=== PATIENT | male | born 1935 | race Caucasian/White ===

== ENCOUNTER 2020-04-21 09:51 | Emergency (ER) | payer MEDICARE, SELFPAY ==
[~2020-04-21] VITALS: Ht 182.9 cm; Wt 136.1 kg
[2020-04-21 09:54] VITALS: BP_SYST 128
--- NOTE | 2020-04-21 09:54 | NUR ---
Patient to ER bed 7 to gown for evaluation. Side rails up. Report given to VINAY EVANS.
--- NOTE | 2020-04-21 10:00 | NUR ---
DR GORDON IN TO ASSESS
--- NOTE | 2020-04-21 10:12 | NUR ---
LABS OBTAINED. PT CALM, ALERT, NO DISTRESS, RESP UNLABORED, SKIN WARM AND DRY
[2020-04-21 10:25] LABS: BASOPHILS # (AUTO) 0.1 K/uL (0.0-0.2); BASOPHILS % (AUTO) 0.6 % (0.0-2.0); EOSINOPHILS # (AUTO) 0.1 K/uL (0.0-0.4); EOSINOPHILS % (AUTO) 0.6 % (0.0-4.0); HEMOGLOBIN 14.2 g/dL (14.0-18.0); LYMPHOCYTES % (AUTO) 6.9 % (20.5-51.5); MEAN CORPUSCULAR HEMOGLOBIN 29 pg (27-31); MEAN CORPUSCULAR HGB CONC 34 % (32-36); MEAN CORPUSCULAR VOLUME 86 fL (79.0-98.0); MONOCYTES # (AUTO) 1.3 K/uL (0.0-1.0); MONOCYTES % (AUTO) 8.9 % (1.7-9.3); NEUTROPHILS # (AUTO) 12.2 K/uL (1.8-7.7); PLATELET COUNT (AUTO) 288 K/uL (130-430); RED BLOOD CELL COUNT(AUTO) 4.91 MIL/uL (4.2-6.2); RED CELL DISTRIBUTION WIDTH 15.2 % (9.0-15.0); WHITE BLOOD COUNT (AUTO) 14.7 K/uL (4.8-10.8)
[2020-04-21 10:40] LABS: ANION GAP 11 (5-15); CALCIUM 8.7 mg/dL (8.4-11.0); CHLORIDE 102 mmol/L (98-107); GLUCOSE 114 mg/dL (70-99); POTASSIUM 4.2 mmol/L (3.5-5.1); SODIUM SERUM 135 mmol/L (136-145); UREA NITROGEN, BLOOD 23 mg/dL (8-21)
[2020-04-21 10:48] LABS: ALANINE AMINOTRANSFERASE 21 U/L (12-78); ALBUMIN 2.5 g/dL (3.4-4.8); ASPARTATE AMINOTRANSFERASE 23 U/L (10-37); LIPASE 68 U/L (73-393); TOTAL BILIRUBIN 0.8 mg/dL (0.0-1.0)
[2020-04-21] MEDS ORDERED: NS 500 ML IV ONE (11:15)
--- NOTE | 2020-04-21 12:38 | NUR ---
AAOX1, CALM, ALERT, NO COMPLAINTS. SKIN WARM /DRY. SR ON MONITOR
[2020-04-21 13:22] LABS: C-REACTIVE PROTEIN QUANT 9.9 mg/dL (0-0.5)
--- NOTE | 2020-04-21 13:45 | NUR ---
# 16 FR Tellez catheter with use of sterile technique. Immediate return of 50 cc JERI CLEAR urine noted. Bedside drainage bag placed below level of bladder. Urine sample collected and sent to lab. Pt tolerated procedure WELL. Patient arrived with tellez in place, changed due to standard of practice prior to admission. Patient unable to toilet self.
--- NOTE | 2020-04-21 14:04 | NUR ---
TRANSPORTED TO CT HEAD WITHOUT INCIDENT. NO CHANGE IN MENTATION
[2020-04-21 14:34] LABS: CLARITY/URINE SL CLOUDY (CLEAR); GLUCOSE,URINE NEGATIVE (NEGATIVE); KETONES,URINE TRACE (NEGATIVE); LEUKOCYTE ESTERASE ,URINE NEGATIVE (NEGATIVE); NITRITE, URINE POSITIVE (NEGATIVE); PROTEIN URINE 1+ (NEGATIVE)
[2020-04-21 14:43] LABS: BLOOD, URINE TRACE (NEGATIVE); COLOR,URINE AMBER (YELLOW)
[2020-04-21 14:51] LABS: HYALINE CASTS, URINE 0-10 /LPF (None Seen); MUCUS,URINE 1+ /LPF (None Seen); URINE AMORPHOUS URATE 1+ /HPF (None Seen)
[2020-04-21 14:52] LABS: BILIRUBIN,URINE 1+ (NEGATIVE)
[2020-04-21 14:53] LABS: BACTERIA,URINE None Seen /HPF (None Seen)
[2020-04-21] MEDS ORDERED: cefTRIAXone 1 GM VIAL ONE (14:55)
[2020-04-21] MEDS ORDERED: cefTRIAXone 1 GM in D5W 50 ML IV ONE (15:00)
--- NOTE | 2020-04-21 15:30 | NUR ---
AWARE OF [place], PT CALM, ALERT, COMMUNICATES IN FULL COMPLETE SENTENCES
--- NOTE | 2020-04-21 19:45 | NUR ---
NO CHANGE IN MENTATION, CALM, ALERT, RESP UNLABORED, DENIES CP/SOB. SKIN WARM AND DRY. SITTING UP WATCHING TV. NO DISTRESS
--- NOTE | 2020-04-21 21:25 | NUR ---
LINEN CHANGE AND POSITION CHANGE, TOLERATED WELL. PO INTAKE. GARNICA INTACT, CALM, ALERT, NO DISTRESS. DENIES CP /SOB
--- NOTE | 2020-04-21 22:05 | NUR ---
S/W Jose Richardson, gave report to Staci
[2020-04-21 23:00] VITALS: BP_SYST 133
--- NOTE | 2020-04-21 23:00 | NUR ---
Patient to be transferred to [facility]. Is being transferred due to higher level of care. Receiving facility has accepting physician and available space. ER physician has signed transfer form. Patient or responsible libertarian has agreed to transfer and signed form. Patient belongings inventoried and will be sent with patient. Copy of nursing notes, lab reports, EKG, Physicians Orders and X-rays to be sent with patient. Report called to [facility] at receiving facility. Receiving physician is Dr. Pickett. [facility] ambulance service has been called for transfer
== END 2020-04-21 23:00 | disposition short-term general hospital (02) ==
LOC: SED 09:51
DX: U07.1 COVID-19 (principal); E86.0 Dehydration; N30.00 Acute cystitis without hematuria; R62.7 Adult failure to thrive; R53.1 Weakness
CPT/HCPCS: 36415; 51702; 70450; 71045; 76376; 80053; 81000; 83605; 83690; 84484; 85025; 86140; 87086; 87426; 93005; 96361; 96365; 99285; J0696; J7040